=== PATIENT | female | born 1995 | race Caucasian/White ===

== ENCOUNTER 2022-12-29 15:49 | Emergency (ER) | payer BC, OTHER, SELFPAY ==
[2022-12-29] VITALS (10 sets, daily range): BP systolic 123–156; BP diastolic 80–92; PULSE 86–118; RESP 13–22; TEMP 37.3; O2SAT 98–100
--- NOTE | ~2022-12-29 | XR_ITS ---
EXAMINATION: XR chest 1V portable Exam Date/Time: 12/29/2022 16:25 CDT HISTORY: dyspnea, BREAKING OUT IN [facility], DRINKING ALCOHOL Comparison: None available. RESULT: Lines, tubes, and devices: None. Lungs and pleura: Clear. Cardiomediastinal silhouette: Normal. Other: No acute osseous or upper abdominal finding. IMPRESSION: No acute cardiopulmonary process. Reviewed, dictated and finalized at location K.
--- NOTE | 2022-12-29 16:27 | ECG_ITS ---
Measurements Intervals [place] Rate: 104 P: 58 [place]: 125 QRS: 40 QRSD: 92 T: 53 QT: 350 QTc: 461 Interpretive Statements SINUS TACHYCARDIA OTHERWISE NORMAL ECG NO PREVIOUS ECG AVAILABLE FOR COMPARISON Electronically Signed On 12-30-2022 7:02:54 CDT by Paolo Frederick M.D.
--- NOTE | 2022-12-29 16:31 | ED.ALCOHOL ---
HPI - Alcohol General Chief Complaint: Alcohol <Loly Gordon PA-C - Last Filed: 12/29/22 18:31> Stated Complaint: alcohol withdrawl, hives <Loly oGrdon PA-C - Last Filed: 12/29/22 18:31> Time Seen by Provider: 12/29/22 16:13 <Loly Gordon PA-C - Last Filed: 12/29/22 18:31> History of Present Illness HPI narrative: 27-year-old female reports for evaluation of alcohol withdrawal and hives that started today. Patient reports she drinks 1/5 of vodka at the minimum every day for the past 6 years. Her last drink was last night, she is unsure what time. She is complaining of feeling anxious, tremulous, nausea and dyspnea. She has attempted inpatient treatment for alcohol withdrawal without success. Her last admit was at [facility] on December 15 when she left AMA. Patient is also reporting hives to her entire body that started today. States this usually starts when she is withdrawing from alcohol. Denies new lotions, medications, foods. Denies leg pain or swelling, cough, fever, body aches, chills, abdominal pain, vomiting, recent seizures. Last seizure was in November when she was withdrawing. <Loly Gordon PA-C - Last Filed: 12/29/22 18:31> Related Data Allergies/Adverse Reactions: Allergies Allergy/AdvReac Type Severity Reaction Status Date / Time No Known Allergies Allergy Verified 12/29/22 16:14 <Loly Gordon PA-C - Last Filed: 12/29/22 18:31> Review of Systems Review of Systems: CONSTITUTIONAL: Denies fever, chills EYES: Denies visual changes, redness, or discharge. ENT: Denies rhinorrhea, congestion, sore throat, or otalgia. CARDIOVASCULAR: Denies chest pain, palpitations, or edema. RESPIRATORY: See HPI GASTROINTESTINAL: Denies abdominal pain, nausea, vomiting, or diarrhea. GENITOURINARY: Denies dysuria or hematuria. SKIN: See HPI MUSCULOSKELETAL: Denies back pain, joint pain, or myalgia. NEUROLOGIC: Denies headache, numbness, dizziness, or weakness. PSYCHIATRIC: See HPI <Loly Gordon PA-C - Last Filed: 12/29/22 18:31> Exam Narrative: GENERAL: Well-appearing, well-nourished, and in no acute distress. Speaking in full sentences. She appears anxious. No diaphoresis appreciated. HEAD: Normocephalic, atraumatic. EYES: PERRLA and EOMI. ENT: Nares clear, no rhinorrhea or epistaxis. Mucous membranes moist. Oropharynx without tonsillar hypertrophy exudate or other lesions. Bilateral TMs pearly yang nonbulging. No swelling to lips, tongue, oropharynx. Patient tolerating secretions. NECK: Supple. CHEST: Wheezing to right upper and lower lung baker. No other adventitious sounds. No respiratory distress HEART: Regular rate and rhythm. No murmur heard. Normal peripheral pulses. ABDOMEN: Soft, nontender, nondistended, normal active bowel sounds. EXTREMITIES: Normal range of motion. No edema. Fine tremor to bilateral hands with arm extension. SKIN: Multiple scattered wheals throughout chest, breast, abdomen, arms and legs, and face. No weeping or drainage. NEURO: No focal deficits. Alert and oriented x3. PSYCH: Patient appears anxious. No visual or auditory hallucinations. She does not appear to be agitated. CIWA at initial intake of 12 <Loly Gordon PA-C - Last Filed: 12/29/22 18:31> Course PROJECT SCIENTIST/PA Physician Supervision This visit was performed by both a physician and an APC. I performed all aspects of the MDM as documented. After treatment patient with mild withdrawal symptoms. CIWA significantly improved. Valentine appropriate for outpatient bridge with lorazepam. <Salvatore Méndez MD - Last Filed: 12/30/22 08:28> Vital Signs Vital signs: Vital Signs Temperature 99.2 F 12/29/22 15:50 Pulse Rate 118 H 12/29/22 15:50 Respiratory Rate 22 H 12/29/22 15:50 Blood Pressure 156/91 H 12/29/22 15:50 Pulse Oximetry 99 12/29/22 15:50 Oxygen Delivery Room Air 12/29/22 15:50 Temperature 99.2 F 12/29/22 15:50 Pulse Rate 93
[2022-12-29] MEDS: IPRATROPIUM BR 0.02% INH SOLN 0.5 MG/2.5 ML VIAL INHALATION (16:39)
[2022-12-29] MEDS: LEVALBUTEROL NEB 1.25 MG/3 ML INHALATION (16:39)
[2022-12-29] MEDS: SODIUM CHLORIDE 0.9% IV 1,000 ML 999 ML IV CONT (16:48)
[2022-12-29] MEDS: LORazepam INJ (*CRX) 2 MG/ML VIAL 1 MG IV PUSH (16:48)
[2022-12-29] MEDS: FAMOTIDINE 20 MG/2 ML VIAL IV PUSH (16:50)
[2022-12-29] MEDS: methylPREDNISolone SOD SUCC 125 MG VIAL IV PUSH (16:53)
[2022-12-29] MEDS: THIAMINE HCL 200 MG/2 ML VIAL 100 MG IV PUSH (16:55)
[2022-12-29 16:57] LABS: Basophils Percent Auto 0.3 % (0.2-1.2); Eosinophils Absolute Auto 0.2 K/mm3 (0-0.3); Eosinophils Percent Auto 1.5 % (0-4.4); Hematocrit 45.1 % (37.0-47.0); Hemoglobin 13.8 g/dL (12.0-15.0); Immature Granulocyte Absolute 0.09 K/mm3 (0.00-0.031); Immature Granulocyte Percent A 0.6 % (0-0.5); Lymphocytes Absolute Auto 3.85 K/mm3 (0.9-3.2); Lymphocytes Percent Auto 26.4 % (18.3-44.2); Mean Corpuscular HGB Conc 30.6 g/dl (32-36); Mean Corpuscular Hemoglobin 28.8 pg (26-34); Mean Corpuscular Volume 94.2 fl (80-100); Mean Platelet Volume 10.2 fl (7.4-10.4); Monocytes Absolute Auto 0.7 K/mm3 (0.1-0.6); Monocytes Percent Auto 4.9 % (2.6-8.5); Neutrophils Absolute Auto 9.7 K/mm3 (1.3-6.7); Neutrophils Percent Auto 66.3 % (45.5-73.1); Platelet Count Result 401 k/mm3 (150-375); Red Blood Count 4.79 M/mm3 (4.2-5.4); Red Cell Distribution Width 16.3 % (11.5-14.5); White Blood Count 14.6 K/mm3 (4.5-10.0)
[2022-12-29] MEDS: diphenhydrAMINE HCl INJ 50 MG/ML VIAL 25 MG IV PUSH (16:58)
--- NOTE | 2022-12-29 17:06 | PC.NURSE ---
Breathing treatment complete. Pt improving, visibly less anxious after medication administration.
[2022-12-29 17:13] LABS: Alanine Aminotransferase 61 U/L (6-35); Albumin Level 3.7 g/dL (3.5-5.1); Alkaline Phosphatase 80 U/L (38-126); Anion Gap 12 mmol/L (8-16); Aspartate Amino Transferase 43 U/L (14-36); Bilirubin,Total 0.4 mg/dL (0.2-1.3); Blood Urea Nitrogen 13 mg/dL (7-17); Calcium 8.2 mg/dL (8.4-10.2); Carbon Dioxide 17 mmol/L (22-30); Chloride 106 mmol/L (98-107); Estimated CRCL calculation 93 ml/min; Estimated Glomerular Filt Rate 59; Glucose 101 mg/dL (65-110); Potassium 3.9 mmol/L (3.4-5.0); Sodium 135 mmol/L (137-145)
[2022-12-29 17:19] LABS: Influenza A QL RT-PCR Negative (Negative); Influenza B QL RT-PCR Negative (Negative); SARS-CoV-2 RNA PCR Negative (Negative)
[2022-12-29 17:22] LABS: Ethanol 44 mg/dL (<10)
[2022-12-29 17:24] LABS: NT Pro B Type Natriuretic Pept 27 pg/mL (19.9-100); Troponin I 0.015 ng/mL (0.000-0.034)
[2022-12-29 17:25] LABS: D Dimer 0.27 ug/mL (<0.48)
[2022-12-29] MEDS: LORazepam (*CRX) 1 MG TABLET PO (19:18)
== END 2022-12-29 19:25 | disposition home or self-care (01) ==
PROVIDERS: Emergency Provider Physician Assistant
DX: F10.239 Alcohol dependence with withdrawal, unspecified (principal); L50.9 Urticaria, unspecified; Y90.2 Blood alcohol level of 40-59 mg/100 ml; Z20.822 Contact with and (suspected) exposure to COVID-19
CPT/HCPCS: 36415; 71045; 80053; 80307; 83880; 84484; 85025; 85380; 87636; 93005; 94640; 96374; 96375; 96376; 99284; A9270; J1200; J2060; J2930; J3411; J7030